=== PATIENT | female | born 1935 | race African-American/Black ===

== ENCOUNTER 2018-01-20 20:43 | Emergency (ER) | payer MEDICARE ==
[~2018-01-20] VITALS: Ht 165.1 cm; Wt 70.0 kg
[2018-01-20] MEDS ORDERED: LIDOCAINE HCL/EPINEPHRINE 1%-EPI 1:100,000 20 ML VIAL INFIL ONE (22:00)
[2018-01-20] MEDS ORDERED: TETANUS, DIPHTHERIA, PERTUSSIS VAC/PF 0.5ML (>7YR OLD) IM ONE (22:00)
[2018-01-21 02:00] VITALS: BP 135/60
== END 2018-01-21 02:05 | disposition home or self-care (01) ==
LOC: ER 21:41
DX: S01.111A Laceration without foreign body of right eyelid and periocular area, initial encounter (principal); I10 Essential (primary) hypertension; Z87.891 Personal history of nicotine dependence; W01.0XXA Fall on same level from slipping, tripping and stumbling without subsequent striking against object, initial encounter; Y93.89 Activity, other specified; Y92.89 Other specified places as the place of occurrence of the external cause; Y99.8 Other external cause status
CPT/HCPCS: 12011; 70450; 70486; 90471; 90715; 99284; J3490

== ENCOUNTER 2018-01-26 12:31 | Emergency (ER) | payer MEDICARE ==
[~2018-01-26] VITALS: Ht 157.5 cm; Wt 50.0 kg
[2018-01-26 13:23] VITALS: BP 133/66
== END 2018-01-26 14:29 | disposition home or self-care (01) ==
LOC: ER 13:17
DX: S01.81XD Laceration without foreign body of other part of head, subsequent encounter (principal); Z90.710 Acquired absence of both cervix and uterus; Z98.890 Other specified postprocedural states; Y93.89 Activity, other specified; X58.XXXD Exposure to other specified factors, subsequent encounter; Y99.8 Other external cause status; Y92.89 Other specified places as the place of occurrence of the external cause; Z90.01 Acquired absence of eye
CPT/HCPCS: 99282

== ENCOUNTER 2022-09-06 04:53 | Inpatient (IN) | payer MEDICARE, BC ==
[~2022-09-06] VITALS: Ht 158.8 cm; Wt 509.4 kg
[2022-09-06 09:35] LABS: EOSINOPHILS % 0.8 % (0.0-5.0); HEMATOCRIT. 33.6 % (36.0-48.0); HEMOGLOBIN. 11.4 g/dL (12.0-16.0); LYMPHOCYTES % 27.4 % (20.0-50.0); MEAN CORPUSCULAR HEMOGLOBIN 32.2 pg (28.0-32.0); MEAN CORPUSCULAR VOLUME 95.2 fL (81.0-99.0); MEAN PLATELET VOLUME 8.8 fl (7.4-10.4); MONOCYTES % 7.1 % (2.0-8.0); NEUTROPHILS % 63.7 % (40.0-76.0); PLATELET 208 x1000/uL (130-400); RED BLOOD CELL COUNT 3.53 mill/uL (4.2-5.4); RED CELL DISTRIBUTION WIDTH 15.8 % (11.6-14.6)
[2022-09-06 09:49] LABS: CHLORIDE 107 mEq/L (98-107)
[2022-09-06 10:15] LABS: CLARITY URINE CLEAR (CLEAR); COLOR URINE YELLOW (YELLOW); KETONES URINE TRACE (NEGATIVE); LEUKOCYTE ESTERASE URINE TRACE (NEGATIVE); NITRITE URINE NEGATIVE (NEGATIVE); OCCULT BLOOD URINE NEGATIVE (NEGATIVE); PROTEIN URINE 1+ (NEGATIVE); UROBILINOGEN URINE 0.2 E.U./dL (0.2-1.0)
[2022-09-06] MEDS ORDERED: ASPIRIN 325MG TABLET PO NR (11:15)
[2022-09-06] MEDS ORDERED: ZOLPIDEM TARTRATE 5MG TABLET PO PRN (14:00)
[2022-09-06] MEDS ORDERED: DIPHENHYDRAMINE 50MG/ML VIAL IV PRN (14:00)
[2022-09-06] MEDS ORDERED: CLONIDINE 0.1MG TABLET PO PRN (14:00)
[2022-09-06] MEDS ORDERED: IPRATROPIUM/ALBUTEROL 0.5-3(2.5)MG/3ML NEB HHN PRN (14:00)
[2022-09-06] MEDS ORDERED: ONDANSETRON HCL 4MG/2ML INJ IV PRN (14:00)
[2022-09-06] MEDS ORDERED: DOCUSATE SODIUM 100MG CAPSULE PO PRN (14:00)
[2022-09-06] MEDS ORDERED: LORAZEPAM 0.5MG TABLET PO PRN (14:00)
[2022-09-06] MEDS ORDERED: ACETAMINOPHEN 325MG TABLET PO PRN ×2 (14:00)
[2022-09-06] MEDS ORDERED: NITROGLYCERIN 0.4MG TABLET SL SL PRN (14:15)
[2022-09-06 15:30] VITALS: BP 136/68
[2022-09-06 15:38] LABS: T4 FREE 0.88 ng/dL (0.76-1.46)
[2022-09-06 15:56] LABS: FOLIC ACID (FOLATE) SERUM 13.1 ng/mL (>5.38)
[2022-09-06] MEDS: ENOXAPARIN 30MG/0.3ML SYR SUBCUT SCH (16:59)
[2022-09-06] MEDS ORDERED: AMMONIUM LACTATE 12% LOTION 240ML TOP SCH (17:00)
[2022-09-06] MEDS: PANTOT AC/MIN OIL/PET HY-PHL OINT (AQUAPHOR) TOP SCH (17:00)
[2022-09-06 19:17] LABS: CREATINE KINASE MB FRACTION 2.1 ng/mL (0.5-3.6)
[2022-09-06 20:00] VITALS: BP 118/64
[2022-09-06] MEDS: FUROSEMIDE 40MG/4ML VIAL IVP SCH (21:52)
[2022-09-06] MEDS: SPIRONOLACTONE 25MG TABLET PO SCH (21:53)
[2022-09-06] MEDS: FAMOTIDINE 20MG TABLET PO SCH (21:53)
[2022-09-06] MEDS: LISINOPRIL 5MG TABLET PO SCH (21:53)
[2022-09-07] VITALS: BP 120/67
[2022-09-07 01:07] LABS: *AMPHETAMINES SCREEN URINE NEGATIVE (NEGATIVE); *BARBITURATES SCREEN URINE NEGATIVE (NEGATIVE); *BENZODIAZEPINES SCREEN URINE NEGATIVE (NEGATIVE); *COCAINE SCREEN URINE NEGATIVE (NEGATIVE); CANNABINOID URINE SCREEN NEGATIVE (NEGATIVE); METHADONE URINE SCREEN NEGATIVE (NEGATIVE); OPIATES URINE SCREEN NEGATIVE (NEGATIVE); PHENCYCLIDINE URINE SCREEN NEGATIVE (NEGATIVE)
[2022-09-07 01:18] LABS: CREATINE KINASE MB FRACTION 1.9 ng/mL (0.5-3.6)
[2022-09-07 04:00] VITALS: BP 123/60
[2022-09-07 07:51] LABS: BASOPHILS % 0.7 % (0.0-2.0); EOSINOPHILS % 1.3 % (0.0-5.0); HEMATOCRIT. 32.4 % (36.0-48.0); HEMOGLOBIN. 11.1 g/dL (12.0-16.0); LYMPHOCYTES % 23.1 % (20.0-50.0); MEAN CORPUSCULAR HEMOGLOBIN 32.5 pg (28.0-32.0); MONOCYTES % 10.2 % (2.0-8.0); NEUTROPHILS % 64.7 % (40.0-76.0); PLATELET 210 x1000/uL (130-400); RED BLOOD CELL COUNT 3.41 mill/uL (4.2-5.4); RED CELL DISTRIBUTION WIDTH 15.9 % (11.6-14.6)
[2022-09-07 08:00] VITALS: BP 125/66
[2022-09-07] MEDS: SPIRONOLACTONE 25MG TABLET PO SCH ×2 (08:27→21:21)
[2022-09-07] MEDS: FUROSEMIDE 40MG/4ML VIAL IVP SCH ×3 (08:27→21:45)
[2022-09-07] MEDS: ASPIRIN 325MG EC TABLET PO SCH (08:27)
[2022-09-07] MEDS: LISINOPRIL 5MG TABLET PO SCH ×2 (08:28→21:21)
[2022-09-07] MEDS: FAMOTIDINE 20MG TABLET PO SCH ×2 (08:28→21:21)
[2022-09-07] MEDS: LEVOTHYROXINE SODIUM 88MCG TABLET PO SCH (08:28)
[2022-09-07] MEDS: PANTOT AC/MIN OIL/PET HY-PHL OINT (AQUAPHOR) TOP SCH ×2 (08:28→17:11)
[2022-09-07 11:36] LABS: CHLORIDE 103 mEq/L (98-107); PHOSPHORUS 3.9 mg/dL (2.5-4.9); TOTAL IRON BINDING CAPACITY 294 ug/dL (250-450)
[2022-09-07 12:00] VITALS: BP 105/55
[2022-09-07] MEDS: ENOXAPARIN 30MG/0.3ML SYR SUBCUT SCH (15:00)
[2022-09-07 16:00] VITALS: BP_SYST 110; BP_SYST 112; BP_DIAS 49; BP_DIAS 75
[2022-09-07 20:00] VITALS: BP 105/54
[2022-09-08] VITALS (7 sets, daily range): BP systolic 100–145; BP diastolic 55–82
[2022-09-08] MEDS ORDERED: LORAZEPAM 2MG/ML CPJ IV NR (03:45)
[2022-09-08] MEDS: LEVOTHYROXINE SODIUM 88MCG TABLET PO SCH (09:00)
[2022-09-08] MEDS: FAMOTIDINE 20MG TABLET PO SCH ×2 (09:00→20:36)
[2022-09-08] MEDS: FUROSEMIDE 40MG/4ML VIAL IVP SCH ×2 (09:00→20:36)
[2022-09-08] MEDS: ASPIRIN 325MG EC TABLET PO SCH (09:00)
[2022-09-08] MEDS: SPIRONOLACTONE 25MG TABLET PO SCH ×2 (09:00→20:36)
[2022-09-08] MEDS: LISINOPRIL 5MG TABLET PO SCH ×2 (09:00→20:37)
[2022-09-08] MEDS: PANTOT AC/MIN OIL/PET HY-PHL OINT (AQUAPHOR) TOP SCH ×2 (09:54→17:00)
[2022-09-08 10:29] LABS: HEMATOCRIT 30.9 % (36.0-48.0); HEMOGLOBIN 10.7 g/dL (12.0-16.0); MEAN CORPUSCULAR HEMOGLOBIN 32.4 pg (28.0-32.0); PLATELET 216 x1000/uL (130-400); RED BLOOD CELL COUNT 3.29 mill/uL (4.2-5.4); RED CELL DISTRIBUTION WIDTH 15.4 % (11.6-14.6)
[2022-09-08] MEDS ORDERED: FLUMAZENIL 0.1 MG/ML 5ML VIAL IV ONE (10:45)
[2022-09-08 12:13] LABS: CHLORIDE 105 mEq/L (98-107)
[2022-09-08 12:46] LABS: PHOSPHORUS 3.7 mg/dL (2.5-4.9)
[2022-09-08] MEDS: ENOXAPARIN 30MG/0.3ML SYR SUBCUT SCH (15:11)
[2022-09-08] MEDS: RISPERIDONE 0.25MG TABLET PO SCH (17:00)
[2022-09-09] VITALS: BP 108/67
[2022-09-09 04:00] VITALS: BP 122/73
[2022-09-09 07:05] LABS: HEMATOCRIT 33.9 % (36.0-48.0); HEMOGLOBIN 11.7 g/dL (12.0-16.0); MEAN CORPUSCULAR HEMOGLOBIN 32.6 pg (28.0-32.0); MEAN CORPUSCULAR VOLUME 94.6 fL (81.0-99.0); PLATELET 223 x1000/uL (130-400); RED BLOOD CELL COUNT 3.58 mill/uL (4.2-5.4); RED CELL DISTRIBUTION WIDTH 15.5 % (11.6-14.6)
[2022-09-09 07:26] LABS: PHOSPHORUS 3.8 mg/dL (2.5-4.9)
[2022-09-09 08:00] VITALS: BP 125/72
[2022-09-09 08:01] LABS: CHLORIDE 99 mEq/L (98-107)
[2022-09-09] MEDS: FUROSEMIDE 40MG/4ML VIAL IVP SCH ×2 (09:10→20:34)
[2022-09-09] MEDS: SPIRONOLACTONE 25MG TABLET PO SCH ×2 (09:31→21:22)
[2022-09-09] MEDS: FAMOTIDINE 20MG TABLET PO SCH ×2 (09:31→21:22)
[2022-09-09] MEDS: ASPIRIN 325MG EC TABLET PO SCH (09:32)
[2022-09-09] MEDS: LISINOPRIL 5MG TABLET PO SCH ×2 (09:32→20:34)
[2022-09-09] MEDS: RISPERIDONE 0.25MG TABLET PO SCH ×2 (09:32→16:41)
[2022-09-09] MEDS: LEVOTHYROXINE SODIUM 88MCG TABLET PO SCH (09:49)
[2022-09-09] MEDS: PANTOT AC/MIN OIL/PET HY-PHL OINT (AQUAPHOR) TOP SCH ×2 (09:58→17:13)
[2022-09-09] MEDS ORDERED: IOHEXOL-350 100 ML BOTTLE ONE (10:20)
[2022-09-09 11:59] VITALS: BP 78/58
[2022-09-09] MEDS: ENOXAPARIN 30MG/0.3ML SYR SUBCUT SCH (15:00)
[2022-09-09 16:00] VITALS: BP 94/57
[2022-09-09 20:00] VITALS: BP 98/76
[2022-09-10] VITALS: BP 100/45
[2022-09-10 04:00] VITALS: BP 107/53
[2022-09-10 06:31] LABS: HEMOGLOBIN 11.3 g/dL (12.0-16.0); MEAN CORPUSCULAR HEMOGLOBIN 32.2 pg (28.0-32.0); MEAN CORPUSCULAR VOLUME 94.3 fL (81.0-99.0); PLATELET 221 x1000/uL (130-400); RED CELL DISTRIBUTION WIDTH 15.4 % (11.6-14.6)
[2022-09-10 07:20] LABS: PHOSPHORUS 3.8 mg/dL (2.5-4.9)
[2022-09-10 08:00] VITALS: BP 108/67
[2022-09-10] MEDS: FUROSEMIDE 40MG/4ML VIAL IVP SCH (08:52)
[2022-09-10] MEDS: ENOXAPARIN 30MG/0.3ML SYR SUBCUT SCH (08:52)
[2022-09-10] MEDS: FAMOTIDINE 20MG TABLET PO SCH (08:53)
[2022-09-10] MEDS: ASPIRIN 325MG EC TABLET PO SCH (08:53)
[2022-09-10] MEDS: SPIRONOLACTONE 25MG TABLET PO SCH (08:53)
[2022-09-10] MEDS: RISPERIDONE 0.25MG TABLET PO SCH ×2 (09:20→17:09)
[2022-09-10] MEDS: PANTOT AC/MIN OIL/PET HY-PHL OINT (AQUAPHOR) TOP SCH ×2 (09:21→17:11)
[2022-09-10] MEDS: LISINOPRIL 5MG TABLET PO SCH (09:21)
[2022-09-10] MEDS: LEVOTHYROXINE SODIUM 88MCG TABLET PO SCH (09:23)
[2022-09-10] MEDS ORDERED: ASPI-1406 MT (10:17)
[2022-09-10] MEDS ORDERED: SPIR25TA MT (10:17)
[2022-09-10] MEDS ORDERED: LEVO100T MT (10:17)
[2022-09-10] MEDS ORDERED: FURO-151 MT (10:17)
[2022-09-10] MEDS ORDERED: LOSA25TA3 MT (10:17)
[2022-09-10 12:00] VITALS: BP 97/88
[2022-09-10 16:00] VITALS: BP 103/62
[2022-09-10 17:47] VITALS: BP 103/62
== END 2022-09-10 18:40 | disposition home health service (06) | DRG 280 ==
LOC: ER 04:53 → EDBEDREQ 11:09 → 7WST 11:42 → EDBEDREQTM 11:49 → EDBEDREQ 11:49 → 7WST 09-08 03:42
PROVIDERS: ADMIT Internal Medicine; ATTEND Internal Medicine
DX: I11.0 Hypertensive heart disease with heart failure (principal); I21.A1 Myocardial infarction type 2; I50.23 Acute on chronic systolic (congestive) heart failure; E46 Unspecified protein-calorie malnutrition; J84.9 Interstitial pulmonary disease, unspecified; D64.9 Anemia, unspecified; E03.9 Hypothyroidism, unspecified; F03.90 Unspecified dementia, unspecified severity, without behavioral disturbance, psychotic disturbance, mood disturbance, and anxiety; D72.819 Decreased white blood cell count, unspecified; F29 Unspecified psychosis not due to a substance or known physiological condition; I70.203 Unspecified atherosclerosis of native arteries of extremities, bilateral legs; Z90.710 Acquired absence of both cervix and uterus; Z88.8 Allergy status to other drugs, medicaments and biological substances; Z28.310 Unvaccinated for COVID-19
CPT/HCPCS: 36415; 71045; 75635; 80048; 80053; 80305; 81003; 82550; 82553; 82607; 82728; 82746; 83036; 83540; 83550; 83735; 83880; 84100; 84439; 84443; 84484; 85025; 85027; 93005; 93306; 93923; 93970; 97116; 97162; 97166; 97530; 97535; 99285; J1650; J1940; J2060; Q9967

== ENCOUNTER 2022-09-13 03:22 | Inpatient (IN) | payer MEDICARE, BC ==
[~2022-09-13] VITALS: Ht 157.5 cm; Wt 50.4 kg
[~2022-09-13 03:22] MED LIST: ASPI-1406 MT; FURO-151 MT; LEVO100T MT; LOSA25TA3 MT; SPIR25TA MT
[2022-09-13 04:13] LABS: CHLORIDE 101 mEq/L (98-107)
[2022-09-13 04:22] LABS: CLARITY URINE CLOUDY (CLEAR); COLOR URINE YELLOW (YELLOW); KETONES URINE TRACE (NEGATIVE); LEUKOCYTE ESTERASE URINE NEGATIVE (NEGATIVE); NITRITE URINE NEGATIVE (NEGATIVE); OCCULT BLOOD URINE NEGATIVE (NEGATIVE); PH URINE 5.5 (4.5-8.0); PROTEIN URINE 1+ (NEGATIVE); SPECIFIC GRAVITY URINE 1.026 (1.005-1.030)
[2022-09-13 04:27] LABS: BASOPHILS % 0.4 % (0.0-2.0); EOSINOPHILS % 0.3 % (0.0-5.0); HEMATOCRIT. 34.8 % (36.0-48.0); HEMOGLOBIN. 11.9 g/dL (12.0-16.0); LYMPHOCYTES % 11.8 % (20.0-50.0); MEAN CORPUSCULAR HEMOGLOBIN 32.3 pg (28.0-32.0); MEAN CORPUSCULAR VOLUME 94.7 fL (81.0-99.0); MEAN PLATELET VOLUME 8.6 fl (7.4-10.4); NEUTROPHILS % 76.5 % (40.0-76.0); PLATELET 228 x1000/uL (130-400); RED BLOOD CELL COUNT 3.67 mill/uL (4.2-5.4); RED CELL DISTRIBUTION WIDTH 15.4 % (11.6-14.6)
[2022-09-13] MEDS ORDERED: NITROGLYCERIN 0.4MG TABLET SL SL PRN (10:00)
[2022-09-13] MEDS ORDERED: DOCUSATE SODIUM 100MG CAPSULE PO PRN (10:00)
[2022-09-13] MEDS ORDERED: CLONIDINE 0.1MG TABLET PO PRN (10:00)
[2022-09-13] MEDS ORDERED: ZOLPIDEM TARTRATE 5MG TABLET PO PRN (10:00)
[2022-09-13] MEDS ORDERED: IPRATROPIUM/ALBUTEROL 0.5-3(2.5)MG/3ML NEB NEB PRN (10:00)
[2022-09-13] MEDS ORDERED: GUAIFENESIN 200MG/10ML SUGAR FREE UDC PO PRN (10:00)
[2022-09-13] MEDS ORDERED: ONDANSETRON HCL 4MG/2ML INJ IV PRN (10:00)
[2022-09-13] MEDS ORDERED: MAGNESIUM/ALUMINUM HYDROXIDE/SIMETHICONE 30ML UDC PO PRN (10:00)
[2022-09-13] MEDS ORDERED: NA PHOS,M-B/NA PHOS,DI-BA ENEMA 118ML PR PRN (10:00)
[2022-09-13] MEDS ORDERED: ACETAMINOPHEN 325MG TABLET PO PRN ×2 (10:00)
[2022-09-13 11:00] VITALS: BP 129/50
[2022-09-13] MEDS: ENOXAPARIN 30MG/0.3ML SYR SUBCUT SCH (11:00)
[2022-09-13 11:17] VITALS: BP 129/50
[2022-09-13 16:00] VITALS: BP 127/55
[2022-09-13 20:00] VITALS: BP 143/56
[2022-09-13] MEDS: SPIRONOLACTONE 25MG TABLET PO SCH (20:57)
[2022-09-13] MEDS ORDERED: FUROSEMIDE 40MG/4ML VIAL IVP SCH (21:00)
[2022-09-13] MEDS: FAMOTIDINE 20MG TABLET PO SCH (21:01)
[2022-09-14] VITALS: BP 115/52
[2022-09-14 04:00] VITALS: BP 120/69
[2022-09-14] MEDS: LEVOTHYROXINE SODIUM 100MCG TABLET PO SCH ×2 (05:50→05:52)
[2022-09-14] MEDS: ENOXAPARIN 30MG/0.3ML SYR SUBCUT SCH (09:40)
[2022-09-14] MEDS: LOSARTAN POTASSIUM 50 MG TABLET PO SCH (09:41)
[2022-09-14] MEDS: SPIRONOLACTONE 25MG TABLET PO SCH ×2 (09:42→21:00)
[2022-09-14] MEDS: ASPIRIN 325MG EC TABLET PO SCH (09:43)
[2022-09-14] MEDS: FUROSEMIDE 20MG/2ML VIAL IVP SCH ×2 (10:44→21:06)
[2022-09-14 12:00] VITALS: BP 125/54
[2022-09-14 16:00] VITALS: BP 108/51
[2022-09-14 20:00] VITALS: BP 105/49
[2022-09-14] MEDS: FAMOTIDINE 20MG TABLET PO SCH (21:06)
[2022-09-15] VITALS: BP 103/51
[2022-09-15] MEDS: SPIRONOLACTONE 25MG TABLET PO SCH ×2 (00:42→08:09)
[2022-09-15] MEDS: LEVOTHYROXINE SODIUM 100MCG TABLET PO SCH (06:15)
[2022-09-15] MEDS: LOSARTAN POTASSIUM 50 MG TABLET PO SCH (07:40)
[2022-09-15 08:00] VITALS: BP 109/45
[2022-09-15] MEDS: ASPIRIN 325MG EC TABLET PO SCH (08:09)
[2022-09-15] MEDS: ENOXAPARIN 30MG/0.3ML SYR SUBCUT SCH (08:09)
[2022-09-15] MEDS: FUROSEMIDE 20MG/2ML VIAL IVP SCH ×3 (08:10→18:00)
[2022-09-15 11:03] LABS: BASOPHILS % 0.9 % (0.0-2.0); EOSINOPHILS % 0.2 % (0.0-5.0); HEMATOCRIT. 34.5 % (36.0-48.0); HEMOGLOBIN. 11.7 g/dL (12.0-16.0); LYMPHOCYTES % 34.7 % (20.0-50.0); MEAN CORPUSCULAR HEMOGLOBIN 32.1 pg (28.0-32.0); MEAN CORPUSCULAR VOLUME 94.7 fL (81.0-99.0); MEAN PLATELET VOLUME 8.9 fl (7.4-10.4); MONOCYTES % 8.2 % (2.0-8.0); PLATELET 191 x1000/uL (130-400); RED BLOOD CELL COUNT 3.64 mill/uL (4.2-5.4); RED CELL DISTRIBUTION WIDTH 14.5 % (11.6-14.6)
[2022-09-15 11:19] LABS: CHLORIDE 101 mEq/L (98-107)
[2022-09-15 11:31] LABS: PHOSPHORUS 3.3 mg/dL (2.5-4.9)
[2022-09-15 12:00] VITALS: BP 101/70
[2022-09-15 16:00] VITALS: BP 90/48
[2022-09-15 17:03] VITALS: BP 121/71
[2022-09-15 20:00] VITALS: BP 104/54
[2022-09-15] MEDS: FAMOTIDINE 20MG TABLET PO SCH ×2 (21:00→21:31)
[2022-09-16] VITALS: BP 118/57
[2022-09-16 04:00] VITALS: BP 112/57
[2022-09-16] MEDS: FUROSEMIDE 20MG/2ML VIAL IVP SCH (05:17)
[2022-09-16 08:00] VITALS: BP 102/50
[2022-09-16] MEDS ORDERED: LOSARTAN POTASSIUM 25 MG TABLET PO SCH (09:00)
[2022-09-16] MEDS ORDERED: ASPIRIN 81MG EC TABLET PO SCH (09:00)
[2022-09-16] MEDS ORDERED: SPIRONOLACTONE 25MG TABLET PO SCH (09:00)
[2022-09-16] MEDS: LEVOTHYROXINE SODIUM 100MCG TABLET PO SCH (09:44)
[2022-09-16] MEDS: ENOXAPARIN 30MG/0.3ML SYR SUBCUT SCH (10:42)
[2022-09-16 12:00] VITALS: BP 103/58
== END 2022-09-16 12:55 | DRG 280 ==
LOC: ER 03:22 → EDBEDREQTM 07:40 → 3WST 07:59 → EDBEDREQ 08:03 → EDBEDREQTM 08:03 → ER 10:18 → 7EST 17:27
PROVIDERS: ADMIT Internal Medicine; ATTEND Internal Medicine
DX: I11.0 Hypertensive heart disease with heart failure (principal); I21.A1 Myocardial infarction type 2; I50.23 Acute on chronic systolic (congestive) heart failure; U07.1 COVID-19; J96.00 Acute respiratory failure, unspecified whether with hypoxia or hypercapnia; D61.818 Other pancytopenia; J91.8 Pleural effusion in other conditions classified elsewhere; E03.9 Hypothyroidism, unspecified; E83.51 Hypocalcemia; J44.9 Chronic obstructive pulmonary disease, unspecified; Z88.8 Allergy status to other drugs, medicaments and biological substances; Z90.710 Acquired absence of both cervix and uterus; Z78.9 Other specified health status
CPT/HCPCS: 36415; 71045; 76604; 80053; 81003; 83735; 83880; 84100; 84145; 84484; 85025; 87426; 87493; 93005; 93970; 99285; J1650; J1940